=== PATIENT | female | born 1965 | race Caucasian/White ===

== ENCOUNTER → 2023-04-20 | Outpatient (CLI) | payer OTHER ==
[~2023-04-20] MED LIST: GADOTERATE MEGLUMINE 10 MMOL/20 ML VIAL IV ONE
== END | disposition home or self-care (01) ==
LOC: RAH 12:27
PROVIDERS: ATTEND Obstetrics & Gynecology
DX: T85.49XA Other mechanical complication of breast prosthesis and implant, initial encounter (principal); Z98.82 Breast implant status; Y92.89 Other specified places as the place of occurrence of the external cause
CPT/HCPCS: 77049; A9575